=== PATIENT | female | born 1965 | race Caucasian/White ===

== ENCOUNTER 2017-12-05 13:02 | Outpatient (CLI) | payer BC ==
--- NOTE | 2017-12-05 16:24 | MMO ---
BILATERAL SCREENING MAMMOGRAMS: 12/05/17 Comparison made to outside study of 2014. Interpreted with computer aided detection. Scattered fibroglandular densities. Scattered benign appearing calcifications. No mass or distortion . No interval change noted. Recommend one year followup. IMPRESSION: BI-RADS 2: Benign Finding(s) Routine annual screening mammography (for women over age 40). POS: [facility]
== END 2017-12-05 13:03 | disposition home or self-care (01) ==
LOC: SCSMAMMO 13:02
PROVIDERS: ATTEND Family Medicine
DX: Z12.31 Encounter for screening mammogram for malignant neoplasm of breast (principal)
CPT/HCPCS: 77067